=== PATIENT | male | born 1950 | race Caucasian/White ===

== ENCOUNTER 2023-05-29 10:46 | Inpatient (IN) | payer OTHER ==
[~2023-05-29] VITALS: Ht 177.8 cm; Wt 93.4 kg
[~2023-05-29 10:46] MED LIST: GABA-531 PO; OMEP20CA15 PO; TRAZ-251 PO
[2023-05-29 11:13] VITALS: BP_SYST 196; PULSE 91; RESP 20; TEMP 98.1; O2SAT 97
[2023-05-29] MEDS ORDERED: NACL 0.9% 1,000 ML IV ONE (11:30)
[2023-05-29] MEDS ORDERED: cloNIDine HCL 0.1 MG TABLET PO ONE (11:30)
[2023-05-29 11:53] LABS: BASOPHILS % (AUTO) 0.3 % (0.0-2.0); EOSINOPHILS % (AUTO) 0.1 % (0.0-4.0); HEMATOCRIT 48.4 % (36-54); HEMOGLOBIN 15.7 g/dL (14.0-18.0); LYMPHOCYTES # (AUTO) 1.3 K/uL (1.0-5.5); LYMPHOCYTES % (AUTO) 9.1 % (20.5-51.5); MEAN CORPUSCULAR HEMOGLOBIN 32 pg (27-31); MEAN CORPUSCULAR HGB CONC 33 % (32-36); MEAN CORPUSCULAR VOLUME 100 fL (79.0-98.0); MONOCYTES # (AUTO) 0.8 K/uL (0.0-1.0); MONOCYTES % (AUTO) 5.8 % (1.7-9.3); NEUTROPHILS # (AUTO) 11.9 K/uL (1.8-7.7); NEUTROPHILS % (AUTO) 84.7 % (40.0-70.0); PLATELET COUNT (AUTO) 432 K/uL (130-430); RED BLOOD CELL COUNT(AUTO) 4.85 MIL/uL (4.2-6.2); RED CELL DISTRIBUTION WIDTH 13.7 % (9.0-15.0); WHITE BLOOD COUNT (AUTO) 14.1 K/uL (4.8-10.8)
[2023-05-29 11:59] LABS: ANION GAP 11 (5-15); CALCIUM 9.7 mg/dL (8.4-11.0); CARBON DIOXIDE 24 mmol/L (23-29); CHLORIDE 99 mmol/L (98-107); CREATININE 1.12 mg/dL (0.55-1.30); GLUCOSE 135 mg/dL (74-106); POTASSIUM 3.9 mmol/L (3.5-5.1); SODIUM SERUM 134 mmol/L (136-145); UREA NITROGEN, BLOOD 12 mg/dL (8-21)
[2023-05-29 12:00] LABS: GFR AFRICAN AMERICAN 83 mL/min (>90); GFR NON AFRICAN-AMERICAN 69 mL/min (>90)
[2023-05-29 12:06] LABS: ALANINE AMINOTRANSFERASE 24 U/L (12-78); ALBUMIN 3.1 g/dL (3.4-4.8); ASPARTATE AMINOTRANSFERASE 20 U/L (10-37); TOTAL PROTEIN, SERUM 8.6 g/dL (6.4-8.3)
[2023-05-29 12:17] LABS: PROTHROMBIN TIME 10.3 SECS (9.5-12.5)
[2023-05-29] MEDS ORDERED: cefTRIAXone 1 GM IVPB PREMIX 50 ML IV ONE (12:45)
[2023-05-29] MEDS ORDERED: hydrALAZINE HCL 20 MG/ML VIAL IVP ONE (13:15)
[2023-05-29 16:36] VITALS: BP_SYST 142; PULSE 79; RESP 20; TEMP 97.7
[2023-05-29 16:50] VITALS: O2SAT 97
[2023-05-29 17:16] VITALS: BP_SYST 142; RESP 20; TEMP 97.7; O2SAT 97
[2023-05-29 20:00] VITALS: BP_SYST 150
[2023-05-30] VITALS (8 sets, daily range): BP systolic 155–213; PULSE 67–88; RESP 16–18; TEMP 97.6–99.1; O2SAT 96–98
[2023-05-30] MEDS ORDERED: ONDANSETRON HCL 4 MG/2 ML VIAL IVP PRN (10:15)
[2023-05-30] MEDS ORDERED: LORazepam 2 MG/ML VIAL IVP PRN (10:15)
[2023-05-30] MEDS: D5/0.45 NS 1,000 ML IV SCH ×2 (12:20→20:15)
[2023-05-30] MEDS: cefTRIAXone 1 GM IVPB PREMIX 50 ML IV SCH (12:20)
[2023-05-30] MEDS ORDERED: MORPHINE 2 MG/ML INJ. SYRINGE IVP ONE (12:30)
[2023-05-30] MEDS ORDERED: hydrALAZINE HCL 20 MG/ML VIAL IVP ONE ×2 (12:30→12:45)
[2023-05-30] MEDS ORDERED: METOPROLOL TARTRATE 25 MG TABLET PO ONE (13:15)
[2023-05-30] MEDS ORDERED: HYDROcodone/ACETAMIN 5-325 MG TAB (NORCO/ VICODIN) PO PRN (13:45)
[2023-05-30] MEDS ORDERED: NALOXONE HCL 0.4 MG/ML AMP (NARCAN) IVP PRN (13:45)
[2023-05-30] MEDS ORDERED: MORPHINE 2 MG/ML INJ. SYRINGE IVP PRN (15:00)
[2023-05-30] MEDS ORDERED: METOPROLOL TARTRATE 5 MG/5 ML VIAL IVP PRN (19:30)
[2023-05-30] MEDS ORDERED: METOPROLOL TARTRATE 25 MG TABLET PO SCH (21:00)
[2023-05-30] MEDS: METOPROLOL TARTRATE 50 MG TABLET PO SCH (21:03)
[2023-05-30] MEDS: HYDROcodone/ACETAMIN 5-325 MG TAB (NORCO/ VICODIN) PO PRN (21:23)
[2023-05-30 23:24] LABS: BILIRUBIN,URINE 1+ (NEGATIVE); BLOOD, URINE NEGATIVE (NEGATIVE); CLARITY/URINE CLEAR (CLEAR); COLOR,URINE YELLOW (YELLOW); GLUCOSE,URINE NEGATIVE (NEGATIVE); KETONES,URINE 2+ (NEGATIVE); LEUKOCYTE ESTERASE ,URINE NEGATIVE (NEGATIVE); NITRITE, URINE NEGATIVE (NEGATIVE); PH,URINE 6.5 (5.0-8.0); PROTEIN URINE TRACE (NEGATIVE)
[2023-05-31] VITALS (10 sets, daily range): BP systolic 78–201; PULSE 56–75; RESP 16–18; TEMP 97.3–99.1; O2SAT 97–100
[2023-05-31 00:22] LABS: BACTERIA,URINE FEW /HPF (None Seen); RBC,URINE 0-3 /HPF (0-3); WBC,URINE 0-3 /HPF (0-3)
[2023-05-31 00:23] LABS: MUCUS,URINE 1+ /LPF (None Seen)
[2023-05-31] MEDS: HYDROcodone/ACETAMIN 5-325 MG TAB (NORCO/ VICODIN) PO PRN ×2 (03:53→21:17)
[2023-05-31] MEDS: D5/0.45 NS 1,000 ML IV SCH ×2 (03:54→16:15)
[2023-05-31 06:28] LABS: BASOPHILS # (AUTO) 0.1 K/uL (0.0-0.2); EOSINOPHILS # (AUTO) 0.3 K/uL (0.0-0.4); EOSINOPHILS % (AUTO) 2.9 % (0.0-4.0); HEMATOCRIT 42.6 % (36-54); HEMOGLOBIN 13.8 g/dL (14.0-18.0); LYMPHOCYTES # (AUTO) 2.1 K/uL (1.0-5.5); LYMPHOCYTES % (AUTO) 19.8 % (20.5-51.5); MEAN CORPUSCULAR HEMOGLOBIN 32 pg (27-31); MEAN CORPUSCULAR HGB CONC 32 % (32-36); MEAN CORPUSCULAR VOLUME 100 fL (79.0-98.0); MONOCYTES # (AUTO) 1.4 K/uL (0.0-1.0); MONOCYTES % (AUTO) 12.9 % (1.7-9.3); NEUTROPHILS # (AUTO) 6.7 K/uL (1.8-7.7); NEUTROPHILS % (AUTO) 63.4 % (40.0-70.0); PLATELET COUNT (AUTO) 344 K/uL (130-430); RED BLOOD CELL COUNT(AUTO) 4.26 MIL/uL (4.2-6.2); RED CELL DISTRIBUTION WIDTH 13.7 % (9.0-15.0); WHITE BLOOD COUNT (AUTO) 10.5 K/uL (4.8-10.8)
[2023-05-31 06:52] LABS: CALCIUM 8.7 mg/dL (8.4-11.0); CREATININE 0.73 mg/dL (0.55-1.30); POTASSIUM 3.2 mmol/L (3.5-5.1)
[2023-05-31] MEDS ORDERED: POTASSIUM CHLORIDE 20 MEQ TAB.PRT.SR PO ONE (08:30)
[2023-05-31] MEDS: METOPROLOL TARTRATE 50 MG TABLET PO SCH ×2 (09:00→21:18)
[2023-05-31] MEDS: hydrALAZINE HCL 20 MG/ML VIAL IVP PRN (09:47)
[2023-05-31] MEDS ORDERED: HYDROCHLOROTHIAZIDE 25 MG TABLET (HCTZ) PO ONE (10:15)
[2023-05-31] MEDS ORDERED: amLODIPine BESYLATE 10 MG TABLET PO ONE (10:30)
[2023-05-31] MEDS ORDERED: lisinopriL 20 MG TABLET PO ONE (10:30)
[2023-05-31] MEDS ORDERED: MIDAZOLAM HCL 5 MG/5 ML VIAL ONE (17:17)
[2023-05-31] MEDS ORDERED: fentaNYL CITRATE/PF 100 MCG/2 ML AMP ONE (17:17)
[2023-05-31] MEDS: cefTRIAXone 1 GM IVPB PREMIX 50 ML IV SCH (17:17)
[2023-05-31] MEDS ORDERED: HYDROmorphone 1 MG/ML INJ. CARTRIDGE IVP PRN (18:45)
[2023-05-31] MEDS ORDERED: ONDANSETRON HCL 4 MG/2 ML VIAL IVP PRN (18:45)
[2023-05-31] MEDS ORDERED: NALOXONE HCL 0.4 MG/ML AMP (NARCAN) IVP PRN (18:45)
[2023-05-31] MEDS ORDERED: NS IRRIG SOLN 1000 ML IR ONE (18:54)
[2023-05-31] MEDS ORDERED: LR 1,000 ML IV.SOLN IV ONE (18:54)
[2023-05-31] MEDS ORDERED: ONDANSETRON HCL 4 MG/2 ML VIAL ONE (18:54)
[2023-05-31] MEDS ORDERED: LIDOCAINE 1% 10 MG/ML, 20 ML MDV ONE (18:54)
[2023-05-31] MEDS: DOXYCYCLINE HYCLATE 100 MG CAPSULE PO SCH (21:18)
[2023-06-01 00:39] VITALS: BP_SYST 122; PULSE 60; RESP 18; TEMP 97.6; O2SAT 96
[2023-06-01] MEDS: D5/0.45 NS 1,000 ML IV SCH ×2 (02:46→09:20)
[2023-06-01] MEDS: HYDROcodone/ACETAMIN 5-325 MG TAB (NORCO/ VICODIN) PO PRN ×2 (05:33→18:26)
[2023-06-01 06:01] LABS: BASOPHILS # (AUTO) 0.1 K/uL (0.0-0.2); BASOPHILS % (AUTO) 1.2 % (0.0-2.0); EOSINOPHILS # (AUTO) 0.5 K/uL (0.0-0.4); EOSINOPHILS % (AUTO) 5.1 % (0.0-4.0); HEMATOCRIT 46.8 % (36-54); HEMOGLOBIN 15.2 g/dL (14.0-18.0); LYMPHOCYTES # (AUTO) 2.3 K/uL (1.0-5.5); LYMPHOCYTES % (AUTO) 23.7 % (20.5-51.5); MEAN CORPUSCULAR HEMOGLOBIN 33 pg (27-31); MEAN CORPUSCULAR HGB CONC 32 % (32-36); MEAN CORPUSCULAR VOLUME 101 fL (79.0-98.0); MONOCYTES # (AUTO) 1.4 K/uL (0.0-1.0); NEUTROPHILS # (AUTO) 5.5 K/uL (1.8-7.7); PLATELET COUNT (AUTO) 114 K/uL (130-430); RED BLOOD CELL COUNT(AUTO) 4.64 MIL/uL (4.2-6.2); RED CELL DISTRIBUTION WIDTH 13.8 % (9.0-15.0); WHITE BLOOD COUNT (AUTO) 9.9 K/uL (4.8-10.8)
[2023-06-01 06:07] LABS: ERYTHROCYTE SEDIMENTATION RATE 8 MM/HR (0-15)
[2023-06-01 06:37] LABS: ALBUMIN 2.5 g/dL (3.4-4.8); CALCIUM 8.9 mg/dL (8.4-11.0); CREATININE 0.68 mg/dL (0.55-1.30); POTASSIUM 3.7 mmol/L (3.5-5.1); TOTAL BILIRUBIN 0.7 mg/dL (0.0-1.0); TOTAL PROTEIN, SERUM 7.1 g/dL (6.4-8.3)
[2023-06-01 08:30] VITALS: BP_SYST 120; PULSE 72; RESP 17; TEMP 97.3; O2SAT 97
[2023-06-01] MEDS ORDERED: HYDROCHLOROTHIAZIDE 25 MG TABLET (HCTZ) PO SCH (09:00)
[2023-06-01] MEDS ORDERED: amLODIPine BESYLATE 10 MG TABLET PO SCH (09:00)
[2023-06-01] MEDS ORDERED: lisinopriL 20 MG TABLET PO SCH (09:00)
[2023-06-01] MEDS: DOXYCYCLINE HYCLATE 100 MG CAPSULE PO SCH (09:13)
[2023-06-01] MEDS: METOPROLOL TARTRATE 50 MG TABLET PO SCH (09:14)
[2023-06-01] MEDS ORDERED: DOXY100C5 PO (10:20)
[2023-06-01] MEDS ORDERED: ROCPM1 IV (10:20)
[2023-06-01] MEDS ORDERED: METO-442 PO (10:20)
[2023-06-01] MEDS ORDERED: NOR10 PO (10:20)
[2023-06-01] MEDS ORDERED: HCT25 PO (10:20)
[2023-06-01] MEDS ORDERED: LISI20TA30 PO (10:20)
[2023-06-01] MEDS: cefTRIAXone 1 GM IVPB PREMIX 50 ML IV SCH (11:41)
[2023-06-01 12:00] VITALS: BP_SYST 121; PULSE 72; RESP 17; TEMP 98.5; O2SAT 98
[2023-06-01] MEDS ORDERED: NORMAL SALINE 5 ML DISP.SYRIN IVF SCH (14:00)
[2023-06-01 16:23] VITALS: BP_SYST 122; PULSE 74; RESP 18; TEMP 97.8; O2SAT 97
[2023-06-01 18:01] VITALS: BP_SYST 120; PULSE 72; RESP 19; TEMP 97.3; O2SAT 97
[2023-06-01] MEDS: hydrALAZINE HCL 20 MG/ML VIAL IVP PRN (18:55)
== END 2023-06-01 18:15 | DRG 571 ==
LOC: SED 10:46 → SMU 12:55 → STU 05-30 17:56
PROVIDERS: ADMIT Preventive Medicine Preventive Medicine/Occupational Environmental Medicine; ATTEND Preventive Medicine Preventive Medicine/Occupational Environmental Medicine
PROC: 0JB10ZZ Excision of Face Subcutaneous Tissue and Fascia, Open Approach (ICD-10-PCS; principal; 2023-05-31 18:02)
DX: C44.310 Basal cell carcinoma of skin of unspecified parts of face (principal); E87.1 Hypo-osmolality and hyponatremia; L03.116 Cellulitis of left lower limb; N39.0 Urinary tract infection, site not specified; K21.9 Gastro-esophageal reflux disease without esophagitis; H54.8 Legal blindness, as defined in USA; D72.829 Elevated white blood cell count, unspecified; G47.00 Insomnia, unspecified; K76.0 Fatty (change of) liver, not elsewhere classified; R62.7 Adult failure to thrive; E88.09 Other disorders of plasma-protein metabolism, not elsewhere classified; E87.6 Hypokalemia; D69.6 Thrombocytopenia, unspecified; M43.9 Deforming dorsopathy, unspecified; Z88.8 Allergy status to other drugs, medicaments and biological substances; Z79.899 Other long term (current) drug therapy; Z68.29 Body mass index [BMI] 29.0-29.9, adult
CPT/HCPCS: 36415; 71045; 71250-TC; 73502; 76376; 80048; 80053; 81000; 81001; 81015; 82962; 83605; 84484; 85025; 85610-TC; 85651-TC; 85730-TC; 87040; 87081; 88305; 93005; 93306; 94010; 97110-GP; 97530-GP; 99285; G0378; J0360; J0696; J2001; J2250; J2270; J2405; J3010; J3490; J7120